=== PATIENT | female | born 1970 | race Caucasian/White ===

== ENCOUNTER 2017-11-03 15:33 | Outpatient (CLI) | payer OTHER | END 2017-11-03 15:34 | disposition home or self-care (01) | LOC: BICMAMMO 15:33 | PROVIDERS: ATTEND Obstetrics & Gynecology | DX: Z12.31 Encounter for screening mammogram for malignant neoplasm of breast (principal); Z80.3 Family history of malignant neoplasm of breast | CPT/HCPCS: 77063; 77067 ==

== ENCOUNTER 2019-10-02 15:10 | Outpatient (CLI) | payer OTHER ==
--- NOTE | 2019-10-02 15:54 | BD ---
EXAM: DEXA bone density examination HISTORY: 49-year-old postmenopausal female for screening COMPARISON: None FINDINGS: L1--bone mineral density 0.858 g/sq cm; T score -1.2 L2--bone mineral density 0.908 g/sq cm; T score -1.1 L3--bone mineral density 0.985 g/sq cm; T score -0.9 L4--bone mineral density 0.962 g/sq cm; T score -0.9 Total L1-L4--bone mineral density 0.930 g/sq cm; T score -1.1 Left femoral neck--bone mineral density0.733; T score -1.0 Total proximal left femur--bone mineral density 0.891; T score -0.4 IMPRESSION: Osteopenia.
== END 2019-10-02 15:11 | disposition home or self-care (01) ==
LOC: BICMAMMO 15:10
PROVIDERS: ATTEND Family Medicine
DX: Z13.820 Encounter for screening for osteoporosis (principal); T14.8XXA Other injury of unspecified body region, initial encounter; M85.89 Other specified disorders of bone density and structure, multiple sites
CPT/HCPCS: 77080

== ENCOUNTER 2019-10-16 14:38 | Outpatient (CLI) | payer OTHER ==
--- NOTE | 2019-10-16 15:20 | RAD ---
TWO VIEWS THORACIC SPINE: HISTORY: Osteomalacia. FINDINGS: Two views of the thoracic spine show normal height and alignment of the vertebral bodies without frac ture or subluxation. Minimal degenerative changes are seen. The visualized posterior ribs are unrem arkable. IMPRESSION: No evidence of acute osseous abnormality. POS: EAA
== END 2019-10-16 14:39 | disposition home or self-care (01) ==
LOC: BICRAD 14:38
PROVIDERS: ATTEND Internal Medicine Rheumatology
DX: M83.9 Adult osteomalacia, unspecified (principal)
CPT/HCPCS: 72070

== ENCOUNTER 2020-03-20 15:24 | Emergency (ER) | payer OTHER ==
[2020-03-20] MEDS ORDERED: Ketorolac Tromethamine 30 MG/ML VIAL ONE (16:16)
--- NOTE | 2020-03-20 17:15 | ULT ---
EXAM: Left lower extremity venous Doppler US HISTORY: left lower extremity edema, redness and pain FINDINGS: Grayscale, color-flow, Doppler evaluation, spectral analysis of the left lower extremity venous struc tures is performed with 2-D imaging. The left common femoral, superficial femoral, popliteal, posterior tibial, proximal greater saphenous and profunda femoral veins are imaged. There is normal luminal compressibility, flow, and augmentation the visualized deep venous structures of the left lower extremity. There is a thrombosed varicose vein in the region of pain and redness in the left calf. IMPRESSION: No evidence of a deep vein thrombosis in the left lower extremity.
== END 2020-03-20 17:41 | disposition home or self-care (01) ==
LOC: ERS 15:24
DX: I80.02 Phlebitis and thrombophlebitis of superficial vessels of left lower extremity (principal); E66.9 Obesity, unspecified; Z79.01 Long term (current) use of anticoagulants; Z79.899 Other long term (current) drug therapy
CPT/HCPCS: 96372; J1885

== ENCOUNTER 2022-10-28 12:52 | Outpatient (CLI) | payer BC | END 2022-10-28 12:53 | disposition home or self-care (01) | LOC: RAD 12:52 | PROVIDERS: ATTEND Family Medicine | DX: U07.1 COVID-19 (principal); R06.02 Shortness of breath | CPT/HCPCS: 71046 ==